=== PATIENT | male | born 1975 | race Caucasian/White ===

== ENCOUNTER 2017-02-02 16:54 | Inpatient (IN) ==
[2017-02-02] MEDS ORDERED: ZOFRAN IV ONE (18:05)
[2017-02-02] MEDS ORDERED: NS 1,000 ML IV ONE (18:05)
--- NOTE | 2017-02-02 18:17 | PROVIDER DOCUMENTATION ---
HPI-General Adult - General Chief Complaint: Vomiting Stated Complaint: vomiting Time Seen by Provider: 02/02/17 17:58 Source: patient, family Allergies/Adverse Reactions: Patient Allergies Allergy/AdvReac Type Severity Reaction Status Date / Time No Known Allergies Allergy Verified 02/02/17 19:00 Home Medications: Home Medication List Medication Instructions Recorded Confirmed Last Taken Type No Home Medications 09/03/16 02/02/17 Unknown History - History of Present Illness -Gen Adult Nature of Presenting Problems: pt tells that he took six to nine 350 mg Soma and two subutex. He told me these were prescribed to him but tells nursing that he bought these off the street. He took these medications because he was having a flare of sciatica. Shortly after taking these he developed nausea and vomiting. SO here says he has been lethargic and slurring his words some. He denies SI/HI, AVH. He adamantly denies attempting to harm himself. "my back was just hurting really bad". Location of Pain/Injury: reports: other (low back) Pain Radiation: reports: other (right lateral leg.) Quality of Pain: reports: aching Severity: reports: moderate Onset/Duration: reports: 2 days ago Timing: reports: still present Context/Activities at Onset: reports: none Modifying Factors: improves with: nothing Associated Symptoms: reports: fatigue, nausea, vomiting. denies: chest pain, cough, diarrhea, headaches Similar Symptoms Previously?: No Recently seen or treated by another doctor?: No Review of Systems - Adult - REVIEW OF SYSTEMS - ADULT Constitutional: reports: no symptoms reported. denies: chills Eyes: reports: no symptoms reported Ears, Nose, Mouth & Throat: reports: no symptoms reported Cardiovascular: reports: no symptoms reported Respiratory: reports: no symptoms reported. denies: cough, shortness of breath Gastrointestinal: reports: no symptoms reported, nausea, vomiting. denies: abdominal pain, hematemesis Genitourinary: reports: no symptoms reported Musculoskeletal: reports: see HPI, back pain Integumentary: reports: no symptoms reported Neurological: reports: no symptoms reported. denies: ataxia, paresthesia Psychiatric: reports: no symptoms reported Endocrine: reports: no symptoms reported Hematologic/Lymphatic: reports: no symptoms reported Allergic/Immunologic: reports: no symptoms reported All Other Systems: Reviewed and Negative Past History - Adult - PAST MEDICAL HISTORY-ADULT Review of Records: reports: Old Records Reviewed, Nursing Assessment Review, Medications Reviewed, Social history reviewed & non-contributory. Major Childhood Illnesses: reports: denies history Cardiovascular: reports: denies history Respiratory: reports: denies history Gastrointestinal: reports: denies history Obstetrical/Gynecological: reports: denies history Genitourinary: reports: denies history Musculoskeletal: reports: denies history Neurological: reports: denies history Endocrine/Immune: reports: denies history Other Conditions: reports: denies history - PRIOR SURGERIES/PROCEDURES Surgical/Procedure History: reports: tonsillectomy - IMMUNIZATION STATUS Childhood Immunizations: See Nurse Assessment Flu Vaccine: See Nurse Assessment - FAMILY HISTORY Family History: reviewed, not pertinent - SOCIAL HISTORY Smoking: cigarettes Provider spent 3-5 mins advising pt. on dangers of tobacco.: Discussed manners to quit use, and f/u contacts for add'l counseling. Substance Use: amphetamines Alcohol Use Frequency: occasionally Living Situation: family Physical Exam-General - PHYSICAL EXAM-ADULT Initial Vital Signs Reviewed: Yes - CONSTITUTIONAL General Appearance: appears well, alert, no apparent distress - EYES Eyes: PERRL/EOMI, pink conjunctivae - HEAD, EARS, NOSE, MOUTH & THROAT HENMT: normocephalic/atraumatic, moist mucous membranes - NECK Neck: non-tender, full range of motion, supple - RESPIRATORY Respiratory: lungs clear, normal breath sounds - CARDIOVASCULAR Cardiovascular: normal peripheral pulses, regular rate, rhythm - GASTROINTESTINAL (ABDOMEN) Abdominal Exam: non tender, soft, no organomegaly - LYMPHATIC Lymphatic: no adenopathy - MUSCULOSKELETAL Back Exam: normal inspection, no CVA tenderness, no vertebral tenderness Extremity: normal range of motion, non-tender. negative: calf tenderness Peripheral Pulses: radial (R): 2+, radial (L): 2+ - SKIN Integumentary: normal color, normal turgor, warm/dry - NEUROLOGIC Neurologic: grossly normal, no motor/sensory deficits, other (slight slurred speech. Falls asleep easy.). negative: focal weakness - PSYCHIATRIC Psych/Mental Status: normal mood/affect, oriented x 3 Progress - PLAN OF CARE/RESULTS Progress/Plan/Lab Results: Vital Signs - 8 hr 07/17 17:30 Temperature 97.5 F L Pulse Rate 69 Respiratory Rate 20 Blood Pressure 119/82 O2 Sat by Pulse Oximetry 99 Orders Category Date Time Status Cardiac Monitoring DIRECTED Care 02/02/17 18:10 Active Saline Loc NOW Care 02/02/17 18:04 Active ACETAMINOPHEN [TDM] Stat Lab 02/02/17 18:05 Uncollected ALCOHOL BLOOD Stat Lab 02/02/17 18:05 Uncollected CBC WITH ELECTRONIC DIFF [HEME] Stat Lab 02/02/17 18:04 Uncollected COMPREHENSIVE METABOLIC PANEL [CHEM] Stat Lab 02/02/17 18:05 Uncollected LIPASE [CHEM] Stat Lab 02/02/17 18:05 Uncollected SALICYLATES [TDM] Stat Lab 02/02/17 18:05 Uncollected UA NIMS W/REFLEX CULT [URINALYSIS] Stat Lab 02/02/17 18:05 Uncollected URINE DRUG SCREEN Stat Lab 02/02/17 18:05 Uncollected 0.9% Sodium Chloride Inj [Ns] 1,000 ml Med 02/02/17 18:05 Active IV 999 mls/hr Ondansetron [Zofran] Med 02/02/17 18:05 Discontinued 4 mg IV NOW ONE Pulse Oximetry Stat Oth 02/02/17 18:15 Active EKG [EKG] Stat Ther 02/02/17 18:05 Ordered case and plan of care discussed with Dr. Campa. 2230: pt arrousable but falls asleep very quickly. Will admit for observation. Result Diagrams: 02/03/17 04:55 02/03/17 04:55 - CONSULTS/PCP/HOSPITALIST Notification #1 *Consult/PCP/Hospitalist*: Dr. Bray Time Discussed: 22:29 Consult Disposition: Admit Departure - Departure Date of Disposition Decision: 02/02/17 Time of Disposition Decision: 22:29 DIAGNOSIS: Overdose Qualifiers: Encounter type: initial encounter Injury intent: accidental or unintentional Qualified Code(s): T50.901A - Poisoning by unspecified drugs, medicaments and biological substances, accidental (unintentional), initial encounter Disposition: ADMITTED INPATIENT 09 Certified Medical Emergency: Emergent Condition: Stable - Critical Care Note This patient required my direct & personal management of CC.: No Attestation - Physician/ GABRIEL Attestation Patient care was provided by Advanced Practice Provider:: Yes Advanced Practice Provider:: Gustavo Leung Advanced Practice Provider documentation review:: The Mid-level provider documentation, treatment plan and medical decision making was reviewed by the physician who agrees with all treatment and medical decision making by the MLP.
[2017-02-02 18:58] LABS: MANUAL DIFF NEEDED? NO
[2017-02-02 19:15] LABS: BASO% 0.5 % (0.0-0.8); EOS# 0.17 X1000 (0.0-0.7); EOS% 2.1 % (0.0-10.0); HEMATOCRIT 41.7 % (42.0-52.0); LYMPH# 0.97 X1000 (1.2-3.4); LYMPH% 11.8 % (20.5-51.1); MCH 30.3 PG (27-31); MCHC 33.6 g/dL (33-37); MCV 90.3 FL (81-99); MONO# 0.55 X1000 (0.11-0.59); MONO% 6.7 % (1.7-9.3); MPV 11.1 FL (7.4-10.4); NEUT% 78.9 % (42.2-75.2); PLT 195 X1000 (130-400); RBC 4.62 XMIL (4.7-6.1)
[2017-02-02 19:28] LABS: AGAP 8; ALBUMIN 4.2 g/dL (3.5-5.0); ALKALINE PHOSPHATASE 55 U/L (32-122); BUN 30 mg/dL (8-22); CALCIUM 9.2 mg/dL (8.8-10.2); CHLORIDE 96 mmol/L (98-107); COSMO 281; GOT 24 U/L (10-34); GPT 19 U/L (10-44); LIPASE 19 U/L (13-60); POTASSIUM 3.9 mmol/L (3.5-5.1); SODIUM 136 mmol/L (136-145); TCO2 32 mmol/L (25-35); TOTAL BILIRUBIN 0.35 mg/dL (0.20-1.00); TOTAL PROTEIN 6.7 g/dL (6.3-8.3)
[2017-02-02 19:40] LABS: ACETAMINOPHEN < 1.2 ug/mL (10-30)
[2017-02-02 20:56] LABS: URINE CULTURE NEEDED? NO; URINE MICRO REVIEW NEEDED? NO; URINE SOURCE CLEAN CATCH
[2017-02-02 21:09] LABS: BILIRUBIN URINE NEGATIVE (NEGATIVE); BLOOD URINE NEGATIVE (NEGATIVE); COLOR YELLOW; GLUCOSE URINE NEGATIVE (NEGATIVE); LEUKOCYTES URINE NEGATIVE (NEGATIVE); NITRITE URINE NEGATIVE (NEGATIVE); PH URINE 5.5; PROTEIN URINE NEGATIVE (NEGATIVE); SP GRAVITY URINE 1.019; TURBIDITY URINE CLEAR (CLEAR); UR EPITHELIAL CELLS <10 /HPF (<10); URINE BACTERIA NEGATIVE /HPF; URINE RBC <10 /HPF (<10); URINE WBC <10 /HPF (<10); UROBILINOGEN URINE NORMAL (NORMAL)
[2017-02-02 21:39] LABS: UR AMPHETAMINES QUAL PRESUMPTIVE POSITIVE (NONE DETECT); UR BARBITUATES QUAL NONE DETECTED (NONE DETECT); UR BENZODIAZEPIN QUAL NONE DETECTED (NONE DETECT); UR CANNABINOIDS QUAL PRESUMPTIVE POSITIVE (NONE DETECT); UR COCAINE QUAL NONE DETECTED (NONE DETECT); UR METHADONE QUAL NONE DETECTED (NONE DETECT); UR OPIATES QUAL NONE DETECTED (NONE DETECT); UR OXYCODONE QUAL NONE DETECTED (NONE DETECT); UR PCP QUAL NONE DETECTED (NONE DETECT)
[2017-02-03] MEDS ORDERED: ZOFRAN IV PRN (01:10)
[2017-02-03 05:30] LABS: MANUAL DIFF NEEDED? NO
[2017-02-03 05:34] LABS: BASO% 0.6 % (0.0-0.8); EOS% 4.9 % (0.0-10.0); HEMOGLOBIN 13.2 g/dL (14.0-18.0); IMM GRAN# 0.02 X1000 (0.0-0.04); IMM GRAN% 0.3 % (0.0-0.5); LYMPH# 1.99 X1000 (1.2-3.4); LYMPH% 32.2 % (20.5-51.1); MCV 90.9 FL (81-99); MONO# 0.45 X1000 (0.11-0.59); MONO% 7.3 % (1.7-9.3); NEUT% 54.7 % (42.2-75.2); PLT 172 X1000 (130-400)
[2017-02-03 05:46] LABS: AGAP 9; BUN 24 mg/dL (8-22); CALCIUM 8.7 mg/dL (8.8-10.2); CHLORIDE 103 mmol/L (98-107); COSMO 284; SODIUM 140 mmol/L (136-145); TCO2 28 mmol/L (25-35)
--- NOTE | 2017-02-03 12:22 | HISTORY AND PHYSICAL ---
CHIEF COMPLAINT: Suspected drug overdose. HISTORY OF PRESENTING ILLNESS: A 41-year-old male without any significant past medical history, states that he took some street drugs from a friend. He stated it was Suboxone and Soma because he was having a moderate amount of pain in his right lower extremity. He was altered and he was brought to the emergency department. He seems somewhat confused; however, he was arousable and responding to questions. He states that these medicines were not prescribed to him and due to the pain, he and he took it. Due to the fact that the patient was somewhat disoriented, it was thought that he would need hospitalization for further for further management. At the time of my examination, however, he denied any headache, fever, chills, chest pain, shortness of breath, hemoptysis or weight changes. Complained of right lower extremity pain. PAST MEDICAL HISTORY: Includes back pain. PAST SURGICAL HISTORY: None. ALLERGIES: No known drug allergies. CURRENT MEDICATIONS: None. SOCIAL HISTORY: Smoking cigarettes for the past 12 years, about a pack a day. Admits to social alcohol use. Admits to marijuana use occasionally. FAMILY HISTORY: No history of coronary artery disease. REVIEW OF SYSTEMS: Twelve point review of systems is as listed in HPI. Other systems negative. PHYSICAL EXAMINATION: GENERAL: Cooperative, friendly male. He is resting comfortably now. VITAL SIGNS: Pulse 52, respirations 16, blood pressure 119/75. HEENT: Atraumatic, normocephalic. Extraocular movements intact. PERRLA. NECK: No masses. CHEST: Clear to auscultation. CARDIOVASCULAR: Regular rate and rhythm. ABDOMEN: Soft. Positive bowel sounds. EXTREMITIES: No edema. NEURO: He is awake, alert, and oriented x1. : No bladder distention. SKIN: Warm. LABORATORIES AND STUDIES: WBCs 8.21, hemoglobin 14.1, hematocrit 41.7, platelets is 195,000. Sodium 136, potassium 3.9, chloride 96, CO2 32, BUN is 30, creatinine is 1.0, glucose is 142. UDS shows amphetamine and cannabinoids in his system. ASSESSMENT: This is a 41-year-old male, without any significant past medical history, states that he took some Soma and Suboxone from a friend due to patient having a right lower extremity pain. He states that he may have taken greater than 6 pills of Soma and several Suboxone bars or so. He was somewhat altered. He was brought to the emergency department and he seemed disoriented and due to his presenting symptoms, it was thought that he would need hospitalization for further management. 1. Suspected drug overdose. 2. Chronic back pain and leg pain. PLAN: 1. We will admit patient to medical floor. 2. We will continue with neuro checks. 3. Continue with supportive treatment. 4. Put patient on DVT prophylaxis with SCDs. 5. Continue to follow and reassess. cc: Soham Brya MD
--- NOTE | 2017-02-04 04:10 | DISCHARGE SUMMARY ---
ADMISSION DATE: 02/03/2017 DISCHARGE DATE: 02/03/2017 DISCHARGE DIAGNOSIS: Suspected unintentional drug overdose. CONSULTATIONS: None. PROCEDURES: None. HOSPITAL COURSE: This is a 41-year-old, male without any past medical history who was admitted to the hospital because he was so lethargic. He reports that he had some chronic back pain so he took some street drugs from a friend that was Suboxone and Soma, apparently 2-6 pills instead of just 1. He was somewhat confused, was easily arousable. At this time, he was admitted to the hospital for observation. The patient is doing good. Eating okay. Labs are fine with normal vital signs so this patient is going to be discharged in stable condition. DISCHARGE PHYSICAL EXAMINATION: Vital Signs: Temperature 97.6 degrees, heart rate 59, respiratory rate 16, blood pressure 104/63, O2 saturation 96% on room air. General Examination: This is a 41-year-old, male, lying in bed, in no acute distress. HEENT: Head is normocephalic and atraumatic. Anicteric sclerae and pale conjunctivae. Mucous membranes moist. Neck: Supple. No JVD noted. No carotid bruits. No lymphadenopathy. No thyromegaly. Cardiovascular Examination: S1 and S2 heard. No murmurs, gallops, or rubs. Regular rate and rhythm. Respiratory Examination: Clear bilaterally to auscultation. No work of breathing or using accessory muscles. Abdomen: Soft, nontender to palpation. Bowel sounds present. No organomegaly. No signs of peritoneal irritation. Neurological Examination: Patient is alert and oriented x3. Able to move 4 extremities. Cranial nerves 2-12 grossly normal. DISCHARGE DISPOSITION: Patient is going home with self care. DISCHARGE MEDICATION: Patient highly advised to not use another person's pain medication because it is illegal. I am going to provide pain medications for a month. He was strongly advised to find a pain doctor. Medication at discharge, tramadol 50 q.6 hours p.r.n. to pain. cc: Marco Last MD
[2017-02-04 06:20] VITALS: BP 132/56
--- NOTE | 2017-02-05 05:38 | EKG Report ---
Test Performed on : 02/02/2017 6:42:56 PM Test Reason : CP Blood Pressure : / mmHG Vent. Rate : 054 BPM Atrial Rate : 054 BPM P-R Int : 154 ms QRS Dur : 092 ms QT Int : 426 ms P-R-T Axes : 026 012 015 degrees QTc Int : 403 ms Sinus bradycardia. Otherwise normal ECG When compared with ECG of 03-SEP-2016 05:56, No significant change was found Unconfirmed Result
== END 2017-02-04 11:30 | disposition home or self-care (01) ==
LOC: ED 16:54 → SUATTDRO 02-03 00:36 → 4N 02-03 00:36
PROVIDERS: ATTEND Internal Medicine